=== PATIENT | female | born 1960 | race African-American/Black ===

== ENCOUNTER 2018-01-16 17:18 | Emergency (ER) | payer OTHER ==
[2018-01-16 19:21] LABS: Absolute Lymphocytes (CBC) 2.2 K/uL (0.7-4.9); Absolute Monocytes 0.4 K/uL (0.1-1.3); Absolute Neutrophil 4.4 K/uL (1.8-8.0); Basophils % 0.8 % (0-1.3); Eosinophils % 2.2 % (0-4.4); Hematocrit 40.8 % (36.0-45.0); Lymphocytes % 30.3 % (15.3-44.8); MCH 28.3 pg (27.0-35.0); MCV 87.9 fL (80-100); MPV 9.2 fL (7.6-11.3); Monocytes % 5.4 % (3.3-12.3); RBC Red Blood Cell Count 4.64 M/uL (3.86-4.86)
[2018-01-16] MEDS ORDERED: NA CHLORIDE 0.9% 1,000 ML ONE (19:27)
[2018-01-16] MEDS ORDERED: NA CHLORIDE 0.9% 500 ML ONE (19:27)
--- NOTE | 2018-01-16 19:29 | RAD REPORT ---
EXAM DESCRIPTION: Gypsy Single View01/16/2018 7:18 pm CLINICAL HISTORY: cough COMPARISON: none FINDINGS: The lungs appear clear of acute infiltrate. The heart is normal size IMPRESSION: No acute abnormalities displayed
[2018-01-16 19:43] LABS: Urine Blood NEGATIVE (NEG); Urine Glucose NEGATIVE (NEG); Urine Protein NEGATIVE (NEG); Urine pH 5.5 (5.0-7.0)
[2018-01-16 19:46] LABS: Protime INR 0.9
[2018-01-16 19:52] LABS: Bicarbonate 26 mEq/L (21-31); Glucose Level 98 mg/dL (65-120); Potassium 3.3 mEq/L (3.6-5.0); Sodium Level 138 mEq/L (135-145)
[2018-01-16 19:58] LABS: ALT/SGPT 14 IU/L (10-60); AST/SGOT 24 IU/L (10-42); Albumin 4.5 g/dL (3.2-5.5); Alkaline Phosphatase 89 IU/L (42-121); BUN Blood Urea Nitrogen 20 mg/dL (6-20); Bilirubin Direct < 0.1 mg/dL (0-0.2); Bilirubin Total 0.6 mg/dL (0.3-1.2); Creatine Phosphokinase 127 IU/L (22-269); Magnesium 2.3 mg/dL (1.8-2.5); Protein, Total 8.5 g/dL (6.0-8.3)
[2018-01-16 20:00] LABS: CKMB Creatine Kinase MB 2.6 ng/ml (0.3-4.0)
--- NOTE | 2018-01-16 20:07 | ER ---
Nurse's Notes [facility] Name: Liliana Da Silva Age: 57 yrs Sex: Female : 1960 Arrival Date: 01/16/2018 Time: 17:22 Bed 25 Private MD: Aaron Blake R Diagnosis: Weakness;Hypokalemia;Essential (primary) hypertension Presentation: 01/16 17:48 Presenting complaint: Patient states: Fatigue and generalized weakness since this AM. aj Transition of care: patient was not received from another setting of care. Onset of symptoms was January 16, 2018. Risk Assessment: Do you want to hurt yourself or someone else? Patient reports no desire to harm self or others. Initial Sepsis Screen: Does the patient meet any 2 criteria?. Care prior to arrival: None. 17:48 Method Of Arrival: Ambulatory aj 17:48 Acuity: LIZZ 3 aj 21:21 Initial Sepsis Screen: Does the patient have a suspected source of infection? No. aj1 Patient's initial sepsis screen is negative. Triage Assessment: 17:50 General: Appears in no apparent distress. comfortable, Behavior is calm, cooperative, aj appropriate for age. Pain: Denies pain. Neuro: Level of Consciousness is awake, alert, obeys commands, Oriented to person, place, time, situation, Appropriate for age. Respiratory: Airway is patent Respiratory effort is even, unlabored, Respiratory pattern is regular, symmetrical. Derm: Skin is intact, is healthy with good turgor, Skin is pink, warm \T\ dry. normal. Musculoskeletal: No signs and/or symptoms reported regarding the musculoskeletal system. Circulation, motion, and sensation intact. Historical: - Allergies: 17:50 No Known Allergies; aj - Home Meds: 17:50 amlodipine oral [Active]; losartan oral oral [Active]; aj - PMHx: 17:50 Hypertension; Leukemia; aj - PSHx: 17:50 None; aj - Immunization history:: Adult Immunizations up to date. - Social history:: Smoking status: Patient/guardian denies using tobacco. - Ebola Screening: : Patient negative for fever greater than or equal to 101.5 degrees Fahrenheit, and additional compatible Ebola Virus Disease symptoms Patient denies exposure to infectious person Patient denies travel to an Ebola-affected area in the 21 days before illness onset No symptoms or risks identified at this time. Screenin:15 Abuse screen: Denies threats or abuse. Denies injuries from another. Nutritional aj1 screening: No deficits noted. Tuberculosis screening: No symptoms or risk factors identified. 21:21 Fall Risk None identified. aj1 Assessment: 18:15 General: Appears in no apparent distress. comfortable, Behavior is calm, cooperative, aj1 appropriate for age. Pain: Denies pain. Neuro: Level of Consciousness is awake, alert, obeys commands, Oriented to person, place, time, situation, Sports Medicine Trainer are equal bilaterally Moves all extremities. Full function Gait is steady, Speech is normal, Facial symmetry appears normal, Intact Reports fatigue, malaise. Cardiovascular: Patient's skin is warm and dry. Respiratory: Airway is patent Respiratory effort is even, unlabored, Respiratory pattern is regular, symmetrical. GI: No signs and/or symptoms were reported involving the gastrointestinal system. : No signs and/or symptoms were reported regarding the genitourinary system. EENT: No signs and/or symptoms were reported regarding the EENT system. Derm: No signs and/or symptoms reported regarding the dermatologic system. Skin is normal. Musculoskeletal: No signs and/or symptoms reported regarding the musculoskeletal system. Circulation, motion, and sensation intact. 19:10 Reassessment: Patient appears in no apparent distress at this time. No changes from aj1 previously documented assessment. Patient and/or family updated on plan of care and expected duration. Pain level reassessed. Patient is alert, oriented x 3, equal unlabored respirations, skin warm/dry/pink. 20:08 Reassessment: Patient appears in no apparent distress at this time. No changes from aj1 previously documented assessment. Patient and/or family updated on plan of care and expected duration. Pain level reassessed. Patient is alert, oriented x 3, equal unlabored respirations, skin warm/dry/pink. Awaiting remaining labs to return before discharging patient. 21:19 Reassessment: Patient appears in no apparent distress at this time. No changes from aj1 previously documented assessment. Patient and/or family updated on plan of care and expected duration. Pain level reassessed. Patient is alert, oriented x 3, equal unlabored respirations, skin warm/dry/pink. 21:19 Reassessment: Patient is concerned about her high blood pressure. Notified Dr. Hudson aj1 of patient's concern. Patient was advised to keep a log of her blood pressures and bring it to her follow up with her PHCP so she can have medications adjusted if needed. Vital Signs: 17:50 BP 176 / 99; Pulse 72; Resp 16; Temp 97.8; Pulse Ox 100% on R/A; Weight 63.5 kg; Height aj 5 ft. 3 in. (160.02 cm); 19:10 BP 155 / 97; Pulse 81; Resp 18; Pulse Ox 99% ; aj1 20:09 BP 157 / 95; Pulse 83; Resp 18; Pulse Ox 98% on R/A; aj1 21:19 BP 155 / 95; Pulse 87; Resp 18; Pulse Ox 99% ; aj1 17:50 Body Mass Index 24.80 (63.50 kg, 160.02 cm) aj ED Course: 17:22 Patient arrived in ED. sb2 17:22 Aaron Blake MD is Private Physician. sb2 17:49 Triage completed. aj 17:50 Arm band placed on right wrist. Patient placed in an exam room. aj 18:15 Patient has correct armband on for positive identification. Bed in low position. Call aj1 light in reach. Side rails up X 1. 18:15 No provider procedures requiring assistance completed. aj1 18:16 Jaime Hudson MD is Attending Physician. tahmina 18:53 Rose Moseley, RN is Primary Nurse. aj1 19:16 XRAY Chest (1 view) In Process Unspecified. EDMS 19:16 X-ray completed. Portable x-ray completed in exam room. Patient tolerated procedure kc2 well. 19:30 Inserted saline lock: 22 gauge in right antecubital area, using aseptic technique. aj1 Blood collected. 20:05 Aaron Blake MD is Referral Physician. tahmina 21:20 IV discontinued, intact, bleeding controlled, No redness/swelling at site. Pressure aj1 dressing applied. Administered Medications: 19:30 Drug: NS 0.9% 500 ml Route: IV; Rate: bolus; Site: right antecubital; aj1 21:22 Follow up: IV Status: IV infiltrated; IV Intake: 100ml aj1 20:48 Drug: Potassium Chloride 20 mEq Route: PO; aj1 21:22 Follow up: Response: No adverse reaction aj1 21:22 Not Given (pt dischaged before bolus finished): NS 0.9% 1000 ml IV at 125 ml/hr aj1 continuous Intake: 21:22 IV: 100ml; Total: 100ml. aj1 Outcome: 20:06 Discharge ordered by . tahmina 21:21 Discharged to home ambulatory. aj1 21:21 Condition: good 21:21 Discharge instructions given to patient, Instructed on discharge instructions, follow up and referral plans. Demonstrated understanding of instructions, follow-up care. 21:22 Patient left the ED. aj1 Signatures: Dispatcher [employer] EDRose Mancia RN RN Noemi Aguilar RN Jaime Gomez MD MD cha Carr, Kelsie kc2 Tg [id number]
--- NOTE | 2018-01-16 20:07 | EDPHYS ---
Physician Documentation [facility] Name: Liliana Da Silva Age: 57 yrs Sex: Female : 1960 Arrival Date: 01/16/2018 Time: 17:22 Bed 25 Private MD: Aaron Blake R ED Physician Jaime Hudson HPI: 01/16 18:53 This 57 yrs old Black Female presents to ER via Ambulatory with complaints of Weakness. tahmina 18:53 The patient presents to the emergency department with weakness of the entire body, tahmina generalized weakness. Onset: The symptoms/episode began/occurred 3 day(s) ago. Historical: - Allergies: 17:50 No Known Allergies; aj - Home Meds: 17:50 amlodipine oral [Active]; losartan oral oral [Active]; aj - PMHx: 17:50 Hypertension; Leukemia; aj - PSHx: 17:50 None; aj - Immunization history:: Adult Immunizations up to date. - Social history:: Smoking status: Patient/guardian denies using tobacco. - Ebola Screening: : Patient negative for fever greater than or equal to 101.5 degrees Fahrenheit, and additional compatible Ebola Virus Disease symptoms Patient denies exposure to infectious person Patient denies travel to an Ebola-affected area in the 21 days before illness onset No symptoms or risks identified at this time. ROS: 18:54 Constitutional: Negative for fever, chills, and weight loss, Eyes: Negative for injury, tahmina pain, redness, and discharge, ENT: Negative for injury, pain, and discharge, Neck: Negative for injury, pain, and swelling, Cardiovascular: Negative for chest pain, palpitations, and edema, Respiratory: Negative for shortness of breath, cough, wheezing, and pleuritic chest pain, Abdomen/GI: Negative for abdominal pain, nausea, vomiting, diarrhea, and constipation, Back: Negative for injury and pain, : Negative for injury, bleeding, discharge, and swelling, MS/Extremity: Negative for injury and deformity, Skin: Negative for injury, rash, and discoloration, Psych: Negative for depression, anxiety, suicide ideation, homicidal ideation, and hallucinations, Allergy/Immunology: Negative for hives, rash, and allergies, Endocrine: Negative for neck swelling, polydipsia, polyuria, polyphagia, and marked weight changes, Hematologic/Lymphatic: Negative for swollen nodes, abnormal bleeding, and unusual bruising. 18:54 Neuro: Positive for weakness. Exam: 18:54 Constitutional: This is a well developed, well nourished patient who is awake, alert, tahmina and in no acute distress. Head/Face: Normocephalic, atraumatic. Eyes: Pupils equal round and reactive to light, extra-ocular motions intact. Lids and lashes normal. Conjunctiva and sclera are non-icteric and not injected. Cornea within normal limits. Periorbital areas with no swelling, redness, or edema. ENT: Nares patent. No nasal discharge, no septal abnormalities noted. Tympanic membranes are normal and external auditory canals are clear. Oropharynx with no redness, swelling, or masses, exudates, or evidence of obstruction, uvula midline. Mucous membranes moist. Neck: Trachea midline, no thyromegaly or masses palpated, and no cervical lymphadenopathy. Supple, full range of motion without nuchal rigidity, or vertebral point tenderness. No Meningismus. Chest/axilla: Normal chest wall appearance and motion. Nontender with no deformity. No lesions are appreciated. Cardiovascular: Regular rate and rhythm with a normal S1 and S2. No gallops, murmurs, or rubs. Normal PMI, no JVD. No pulse deficits. Respiratory: Lungs have equal breath sounds bilaterally, clear to auscultation and percussion. No rales, rhonchi or wheezes noted. No increased work of breathing, no retractions or nasal flaring. Abdomen/GI: Soft, non-tender, with normal bowel sounds. No distension or tympany. No guarding or rebound. No evidence of tenderness throughout. Back: No spinal tenderness. No costovertebral tenderness. Full range of motion. Female : Normal external genitalia. Skin: Warm, dry with normal turgor. Normal color with no rashes, no lesions, and no evidence of cellulitis. MS/ Extremity: Pulses equal, no cyanosis. Neurovascular intact. Full, normal range of motion. Neuro: Awake and alert, GCS 15, oriented to person, place, time, and situation. Cranial nerves II-XII grossly intact. Motor strength 5/5 in all extremities. Sensory grossly intact. Cerebellar exam normal. Normal gait. Psych: Awake, alert, with orientation to person, place and time. Behavior, mood, and affect are within normal limits. Vital Signs: 17:50 BP 176 / 99; Pulse 72; Resp 16; Temp 97.8; Pulse Ox 100% on R/A; Weight 63.5 kg; Height aj 5 ft. 3 in. (160.02 cm); 19:10 BP 155 / 97; Pulse 81; Resp 18; Pulse Ox 99% ; aj1 20:09 BP 157 / 95; Pulse 83; Resp 18; Pulse Ox 98% on R/A; aj1 21:19 BP 155 / 95; Pulse 87; Resp 18; Pulse Ox 99% ; aj1 17:50 Body Mass Index 24.80 (63.50 kg, 160.02 cm) aj MDM: 18:16 Patient medically screened. [facility] 18:54 Data reviewed: vital signs, nurses notes, lab test result(s), EKG, radiologic studies, tahmina plain films. 01/16 18:53 Order name: Basic Metabolic Panel; Complete Time: 20:55 [facility] 01/16 18:53 Order name: BNP; Complete Time: 20:00 [facility] 01/16 18:53 Order name: CBC with Diff; Complete Time: 19:59 [facility] 01/16 18:53 Order name: Ckmb; Complete Time: 20:55 [facility] 01/16 18:53 Order name: CPK; Complete Time: 20:55 [facility] 01/16 18:53 Order name: LFT's; Complete Time: 20:55 [facility] 01/16 18:53 Order name: Magnesium; Complete Time: 20:55 [facility] 01/16 18:53 Order name: PT-INR; Complete Time: 19:59 [facility] 01/16 18:53 Order name: Ptt, Activated; Complete Time: 19:59 [facility] 01/16 18:53 Order name: Troponin (emerg Dept Use Only); Complete Time: 19:59 [facility] 01/16 18:53 Order name: XRAY Chest (1 view); Complete Time: 19:59 [facility] 01/16 18:53 Order name: TSH; Complete Time: 20:55 [facility] 01/16 18:53 Order name: Urine Culture [facility] 01/16 19:25 Order name: Urine Dipstick--Ancillary (enter results); Complete Time: 19:59 01/16 18:53 Order name: EKG; Complete Time: 18:54 [facility] 01/16 18:53 Order name: Cardiac monitoring; Complete Time: 19:23 [facility] 01/16 18:53 Order name: EKG - Nurse/Tech; Complete Time: 19:23 [facility] 01/16 18:53 Order name: IV Saline Lock; Complete Time: 19:24 [facility] 01/16 18:53 Order name: Labs collected and sent; Complete Time: 19:57 [facility] 01/16 18:53 Order name: O2 Per Protocol; Complete Time: 19:24 [facility] 01/16 18:53 Order name: O2 Sat Monitoring; Complete Time: 19:24 [facility] 01/16 18:53 Order name: Urine Dipstick-Ancillary (obtain specimen); Complete Time: 19:24 [facility] Administered Medications: 19:30 Drug: NS 0.9% 500 ml Route: IV; Rate: bolus; Site: right antecubital; aj1 21:22 Follow up: IV Status: IV infiltrated; IV Intake: 100ml [facility] 20:48 Drug: Potassium Chloride 20 mEq Route: PO; aj1 21:22 Follow up: Response: No adverse reaction aj 21:22 Not Given (pt dischaged before bolus finished): NS 0.9% 1000 ml IV at 125 ml/hr [facility] continuous Disposition: 01/16/18 20:06 Discharged to Home. Impression: Weakness, Hypokalemia, Essential (primary) hypertension. - Condition is Stable. - Discharge Instructions: Potassium Content of Foods, Hypertension, Weakness, Fatigue, Near-Syncope, Xfub-[id number], Weakness, Ggox-jc-Aeru, Hypokalemia. - Medication Reconciliation Form, Thank You Letter, Antibiotic Education, Prescription Opioid Use form. - Follow up: Aaron Blake MD; When: 2 - 3 days; Reason: Recheck today's complaints, Continuance of care, Re-evaluation by your physician. - Problem is new. - Symptoms have improved. Signatures: Dispatcher [employer] EDRose Mancia RN RN Noemi Aguilar RN RN aj Anderson, Corey, MD MD cha Corrections: (The following items were deleted from the chart) 20:07 20:06 01/16/2018 20:06 Discharged to Home. Impression: Weakness; Hypokalemia. Condition tahmina is Stable. Forms are Medication Reconciliation Form, Thank You Letter, Antibiotic Education, Prescription Opioid Use. Follow up: Aaron Blake; When: 2 - 3 days; Reason: Recheck today's complaints, Continuance of care, Re-evaluation by your physician. Problem is new. Symptoms have improved. tahmina 21:22 20:07 01/16/2018 20:06 Discharged to Home. Impression: Weakness; Hypokalemia; Essential aj1 (primary) hypertension. Condition is Stable. Discharge Instructions: Potassium Content of Foods, Hypertension, Weakness, Fatigue, Near-Syncope, [id number]-Dczf, Weakness, Kvft-hw-Pmfh, Hypokalemia. Forms are Medication Reconciliation Form, Thank You Letter, Antibiotic Education, Prescription Opioid Use. Follow up: Aaron Blake; When: 2 - 3 days; Reason: Recheck today's complaints, Continuance of care, Re-evaluation by your physician. Problem is new. Symptoms have improved. tahmina
[2018-01-16] MEDS ORDERED: POTASSIUM CL SA 10 MEQ TAB PO ONE (20:26)
[2018-01-16 20:29] LABS: Thyroid Stimulating Hormone 1.37 uIU/mL (0.34-5.60)
--- NOTE | 2018-01-17 06:48 | EKG ---
Test Date: 2018-01-16 Test Time: 19:17:40 [place] Attendant: STEPHEN MEASUREMENT RESULTS: Intervals: Rate: 75 GA: 126 QRSD: 86 QT: 398 QTc: 444 [place]: P: 43 GA: 126 QRS: -12 T: 12 INTERPRETIVE STATEMENTS: Normal sinus rhythm Minimal voltage criteria for LVH, may be normal variant Borderline ECG No previous ECG available for comparison Electronically Signed On 01-17-18 06:47:03 CDT by Eliazar Eric
== END 2018-01-16 21:22 | disposition home or self-care (01) ==
LOC: ER 17:18
DX: E87.6 Hypokalemia (principal); I10 Essential (primary) hypertension; Z85.6 Personal history of leukemia
CPT/HCPCS: 36415; 71045; 80048; 80076; 81003; 82550; 82553; 83735; 83880; 84443; 84484; 85025; 85610; 85730; 87086; 87088; 93005; 96360; 96361; 99284; J7030

== ENCOUNTER 2019-09-08 10:07 | Emergency (ER) | payer BC ==
[2019-09-08] MEDS ORDERED: AMLODIPINE 5 MG TAB ONE (11:24)
[2019-09-08] MEDS ORDERED: HYDROCODONE/APAP 5/325 MG TAB ONE (11:24)
--- NOTE | 2019-09-08 11:42 | RAD REPORT ---
EXAM DESCRIPTION: Shoulder Right 2 View - 09/08/2019 11:28 am CLINICAL HISTORY: shoudler pain COMPARISON: Chest Single View dated 01/16/2018 TECHNIQUE: Internal and external rotation views of the right shoulder were obtained. FINDINGS: There is no fracture or dislocation. AC joint is normal in appearance. Acromial humeral j oint space is normal. Small calcifications are present along the lateral margin of the humeral head s imilar to January 2018. IMPRESSION: No acute right shoulder finding. Soft tissue calcifications likely indicate a calcific tendinitis/tendinosis.
--- NOTE | 2019-09-08 11:52 | ER ---
Nurse's Notes [facility] Name: Liliana Da Silva Age: 59 yrs Sex: Female : 1960 Arrival Date: 09/08/2019 Time: 10:10 Bed 15 Private MD: Ed Richardson Diagnosis: Pain in right shoulder;Calcific tendinitis of right shoulder Presentation: 09/08 10:25 Presenting complaint: Patient states: woke up with right arm pain Friday , has not iw gone away, denies injury, feels like a charley horse. 10:25 Method Of Arrival: Ambulatory iw 10:26 Transition of care: patient was not received from another setting of care. Onset of iw symptoms was September 06, 2019. Risk Assessment: Do you want to hurt yourself or someone else? Patient reports no desire to harm self or others. Initial Sepsis Screen: Does the patient meet any 2 criteria? No. Patient's initial sepsis screen is negative. Does the patient have a suspected source of infection? No. Patient's initial sepsis screen is negative. Care prior to arrival: None. 10:26 Acuity: LIZZ 4 iw Historical: - Allergies: 10:27 No Known Allergies; iw - Home Meds: 10:27 losartan Oral [Active]; amlodipine oral [Active]; iw - PMHx: 10:27 Hypertension; Leukemia; iw - PSHx: 10:27 None; iw - Immunization history:: Adult Immunizations not immunized. - Social history:: Smoking status: Patient denies any tobacco usage or history of. - Ebola Screening: : Patient negative for fever greater than or equal to 101.5 degrees Fahrenheit, and additional compatible Ebola Virus Disease symptoms Patient denies exposure to infectious person Patient denies travel to an Ebola-affected area in the 21 days before illness onset No symptoms or risks identified at this time. Screenin:00 Abuse screen: Denies threats or abuse. Denies injuries from another. Nutritional sg screening: No deficits noted. Tuberculosis screening: No symptoms or risk factors identified. Never had TB. Fall Risk None identified. Assessment: 10:30 General: Appears in no apparent distress. well groomed, well developed, well nourished, sg Behavior is calm, cooperative, appropriate for age. Pain: Complains of pain in anterior aspect of right shoulder and posterior aspect of right shoulder Quality of pain is described as aching. Cardiovascular: Patient's skin is warm and dry. Respiratory: Airway is patent Respiratory effort is even, unlabored, Respiratory pattern is regular, symmetrical. Derm: Skin is intact, is healthy with good turgor, Skin is dry, Skin is normal, Skin temperature is warm. Vital Signs: 10:27 BP 200 / 97; Pulse 56; Resp 16; Temp 98.1; Pulse Ox 99% on R/A; Weight 66.68 kg; Height iw 5 ft. 3 in. (160.02 cm); Pain 8/10; 12:30 BP 215 / 92; Pulse 66; Resp 16; Pulse Ox 100% on R/A; iw 13:02 BP 192 / 88; Pulse 62; Resp 16; Pulse Ox 99% on R/A; sg 10:27 Body Mass Index 26.04 (66.68 kg, 160.02 cm) iw ED Course: 10:10 Patient arrived in ED. mr 10:11 Ed Richardson DO is Private Physician. mr 10:26 Triage completed. iw 10:30 Harsh Mares PA is PHCP. jmm 10:30 Jalil Skinner MD is Attending Physician. jmm 10:30 Patient has correct armband on for positive identification. Bed in low position. Call sg light in reach. 10:33 Jimmy Valles, RN is Primary Nurse. sg 10:35 Arm band placed on. sg 11:29 Shoulder Right (2 View) XRAY In Process Unspecified. EDMS 11:51 Jass Seaman MD is Referral Physician. [facility] 13:00 No provider procedures requiring assistance completed. Patient did not have IV access sg during this emergency room visit. Administered Medications: 11:25 Drug: [place] 5 mg-325 mg 1 tabs Route: PO; sg 11:25 Drug: amLODIPine 10 mg Route: PO; sg 12:36 Drug: cloNIDine 0.2 mg Route: PO; iw Outcome: 11:51 Discharge ordered by . [facility] 13:00 Discharged to home ambulatory, with family. sg 13:00 Condition: good 13:00 Discharge instructions given to patient, Instructed on discharge instructions, follow up and referral plans. medication usage, safety practices, Demonstrated understanding of instructions, follow-up care, medications, Prescriptions given X 4. 13:02 Patient left the ED. sg Signatures: Dispatcher [employer] Jimmy Hall, Harsh Villanueva RN, PA PA jmm Rivera, Mary mr Milvia Lang, RN RN iw
--- NOTE | 2019-09-08 11:52 | EDPHYS ---
Physician Documentation [facility] Name: Liliana Da Silva Age: 59 yrs Sex: Female : 1960 Arrival Date: 09/08/2019 Time: 10:10 Bed 15 Private MD: Ed Richardson ED Physician Jalil Skinner HPI: 09/08 10:55 This 59 yrs old Black Female presents to ER via Ambulatory with complaints of Arm Pain. jmm 10:55 The patient or guardian complains of pain. Onset: The symptoms/episode began/occurred jmm gradually, 4 day(s) ago. Modifying factors: The symptoms are alleviated by remaining still, the symptoms are aggravated by movement. Associated signs and symptoms: Pertinent positives: pain, Pertinent negatives: fever. This is a 59 years old female with a history of htn that presents to the ED with complaints of right shoulder pain beginning this past Friday morning. Patient denies fever, denies known injury. . Historical: - Allergies: 10:27 No Known Allergies; iw - Home Meds: 10:27 losartan Oral [Active]; amlodipine oral [Active]; iw - PMHx: 10:27 Hypertension; Leukemia; iw - PSHx: 10:27 None; iw - Immunization history:: Adult Immunizations not immunized. - Social history:: Smoking status: Patient denies any tobacco usage or history of. - Ebola Screening: : Patient negative for fever greater than or equal to 101.5 degrees Fahrenheit, and additional compatible Ebola Virus Disease symptoms Patient denies exposure to infectious person Patient denies travel to an Ebola-affected area in the 21 days before illness onset No symptoms or risks identified at this time. ROS: 10:55 Constitutional: Negative for fever, chills, and weight loss, Cardiovascular: Negative jmm for chest pain, palpitations, and edema, Respiratory: Negative for shortness of breath, cough, wheezing, and pleuritic chest pain. 10:55 MS/extremity: Positive for pain. 10:55 All other systems are negative. Exam: 10:55 Constitutional: This is a well developed, well nourished patient who is awake, alert, jmm and in no acute distress. Head/Face: atraumatic. Eyes: EOMI, no conjunctival erythema appreciated ENT: Moist Mucus Membranes Neck: Trachea midline, Supple Chest/axilla: Normal chest wall appearance and motion. Cardiovascular: Regular rate and rhythm. No edema appreciated Respiratory: Normal respirations, no respiratory distress appreciated Abdomen/GI: Non distended, soft Back: Normal ROM Skin: General appearance color normal 10:55 Musculoskeletal/extremity: right anterior shoulder TTP, painful abduction, full radial pulse, compartments soft, NVI. 10:55 Skin: Appearance: Color: normal in color. 10:55 Neuro: Orientation: is normal, Mentation: is normal, Memory: is normal. 10:55 Psych: Behavior/mood is pleasant, cooperative. Vital Signs: 10:27 BP 200 / 97; Pulse 56; Resp 16; Temp 98.1; Pulse Ox 99% on R/A; Weight 66.68 kg; Height iw 5 ft. 3 in. (160.02 cm); Pain 8/10; 12:30 BP 215 / 92; Pulse 66; Resp 16; Pulse Ox 100% on R/A; iw 13:02 BP 192 / 88; Pulse 62; Resp 16; Pulse Ox 99% on R/A; sg 10:27 Body Mass Index 26.04 (66.68 kg, 160.02 cm) iw MDM: 10:55 Patient medically screened. [facility] 11:50 Data reviewed: vital signs, nurses notes. Counseling: I had a detailed discussion with yris the patient and/or guardian regarding: the historical points, exam findings, and any diagnostic results supporting the discharge/admit diagnosis, radiology results, the need for outpatient follow up, to return to the emergency department if symptoms worsen or persist or if there are any questions or concerns that arise at home. ED course: Patient is alert and non toxic in appearance in the ED. Advised to follow up with ortho for reevaluation. Patient understood and agrees with the plan of care. . 09/08 11:04 Order name: Shoulder Right (2 View) XRAY; Complete Time: 11:41 [facility] 09/08 11:46 Order name: Sling; Complete Time: 12:25 [facility] Administered Medications: 11:25 Drug: Tenino 5 mg-325 mg 1 tabs Route: PO; sg 11:25 Drug: amLODIPine 10 mg Route: PO; sg 12:36 Drug: cloNIDine 0.2 mg Route: PO; iw Disposition: 16:47 Co-signature as Attending Physician, Jalil Skinner MD. rn Disposition: 09/08/19 11:51 Discharged to Home. Impression: Pain in right shoulder, Calcific tendinitis of right shoulder. - Condition is Stable. - Discharge Instructions: Arthritis, Shoulder Pain. - Prescriptions for Medrol (Greg) 4 mg Oral Tablets, Dose Pack - take 1 tablet by ORAL route as directed - follow package instructions; 1 packet. orphenadrine citrate 100 mg Oral Tablet Sustained Release - take 1 tablet by ORAL route 2 times per day As needed; 20 tablet. amlodipine 10 mg Oral tablet - take 1 tablet by ORAL route once daily; 30 tablet. losartan 100 mg Oral tablet - take 1 tablet by ORAL route once daily; 30 tablet. - Work release form, Medication Reconciliation Form, Thank You Letter, Antibiotic Education, Prescription Opioid Use form. - Follow up: Jass Seaman MD; When: 2 - 3 days; Reason: Recheck today's complaints, Continuance of care, Re-evaluation by your physician. Signatures: Dispatcher [employer] EDJimmy Bruno RN RN sg Mickail, Joel, PA PA jmm Williams, Irene, RN RN iw Nieto, Roman, MD MD internal grinding machine operator: (The following items were deleted from the chart) 13:02 11:51 09/08/2019 11:51 Discharged to Home. Impression: Pain in right shoulder; Calcific sg tendinitis of right shoulder. Condition is Stable. Forms are Medication Reconciliation Form, Thank You Letter, Antibiotic Education, Prescription Opioid Use. Follow up: Dr. Jass Seaman; When: 2 - 3 days; Reason: Recheck today's complaints, Continuance of care, Re-evaluation by your physician. yris
[2019-09-08] MEDS ORDERED: cloNIDine HCL 0.1 MG TAB ONE (12:46)
[2019-09-08 20:16] VITALS: TEMP 98.1
[2019-09-08 20:22] VITALS: BP 192/88; O2SAT 99
== END 2019-09-08 13:02 | disposition home or self-care (01) ==
LOC: ER 10:07
DX: M75.31 Calcific tendinitis of right shoulder (principal); I10 Essential (primary) hypertension; Z85.6 Personal history of leukemia
CPT/HCPCS: 99283

== ENCOUNTER 2022-09-17 16:21 | Emergency (ER) | payer BC, SELFPAY ==
--- OUTSIDE RECORDS SUMMARY | 2022-09-17 16:23 | XMS REPORT | Continuity of Care Document ---
:1960 Author Organization [facility] t Address [address] [place] [address] Care Team Providers Name Role Phone Ed Richardson Attending Clinician Unavailable Problems This patient has no known problems. Allergies, Adverse Reactions, Alerts This patient has no known allergies or adverse reactions. Medications This patient has no known medications. Procedures This patient has no known procedures. Encounters Start End Encounter Admission Attending Care Care Encounter Source Date/Time Date/Time Type Type Clinicians Facility Department ID 2022-08-08 Outpatient Richardson, STLMLC STLMLC [id number] Common 11:22:00 Ed [id number] [facility] 2022-01-08 Outpatient Richardson, STLMLC STLMLC [id number] Common 14:22:01 Ed [facility] 2021-12-24 Outpatient Richardson, STLMLC STLMLC [id number] Common 12:04:00 Ed 48170 [facility] 2021-09-12 Outpatient Richardson, STLMLC STLMLC [id number] Common 14:22:25 Ed 41036 [facility] 2021-09-12 Outpatient Richardson, STLMLC STLMLC [id number] Common 13:56:37 Ed 67595 [facility] 2021-09-12 Outpatient Richardson, STLMLC STLMLC [id number] Common 13:50:02 Ed 60941 [facility] 2021-09-12 Outpatient Richardson, STLMLC STLMLC [id number] Common 13:29:44 Ed 58402 [facility] 2021-09-12 Outpatient Richardson, STLMLC STLMLC [id number] Common 13:23:58 Ed 23271 [facility] 2021-09-12 Outpatient Richardson, STLMLC STLMLC [id number] Common 13:23:33 Ed 04721 [facility] 2021-09-12 Outpatient Richardson, STLMLC STLMLC [id number] Common 12:49:49 Ed 44635 [facility] 2021-09-12 Outpatient Richardson, STLMLC STLMLC [id number] Common 12:47:32 De 63175 [facility] 2021-09-12 Outpatient Richardson, STLMLC STLMLC [id number] Common 12:43:42 Ed 77312 [facility] 2021-09-12 Outpatient Richardson, STLMLC STLMLC [id number] Common 12:37:30 Ed 66154 [facility] 2021-09-12 Outpatient Richardson, STLMLC STLMLC [id number] Common 12:27:22 Ed 01240 [facility] 2021-09-12 Outpatient Richardson, STLMLC STLMLC [id number] Common 12:24:58 Ed 63941 [facility] 2021-09-12 Outpatient Richardson, STLMLC STLMLC [id number] Common 11:57:41 Ed 33437 [facility] 2021-09-12 Outpatient Richardson, STLMLC STLMLC [id number] Common 11:57:01 Ed 54049 [facility] 2021-09-12 Outpatient Richardson, STLMLC STLMLC [id number] Common 11:55:43 Ed 05453 [facility] 2021-09-12 Outpatient Richardson, STLMLC STLMLC [id number] Common 11:38:53 Ed 21320 [facility] 2021-09-12 Outpatient Richardson, STLMLC STLMLC [id number] Common 11:25:12 Ed 60352 [facility] 2021-09-12 Outpatient Richardson, STLMLC STLMLC [id number] Common 11:21:48 Ed [id number] [facility] 2021-09-12 Outpatient Dylan REUBENGENARO [facility] [id number] Common 11:14:56 [facility] [address] [facility] Results This patient has no known results.
[2022-09-17 17:22] LABS: Absolute Lymphocytes (CBC) 2.6 K/uL (0.7-4.9); Hematocrit 41.1 % (36.0-45.0); Lymphocytes % 30.4 % (15.3-44.8); MCV 87.5 fL (80-100); MPV 9.2 fL (7.6-11.3)
[2022-09-17 17:42] LABS: Troponin High Sensitivity 7.3 pg/mL (<58.9)
[2022-09-17] MEDS ORDERED: HYDRALAZINE HCL 20 MG/ML VIAL ONE (17:50)
--- NOTE | 2022-09-17 17:59 | RAD REPORT ---
EXAM DESCRIPTION: RAD - Chest Single View - 09/17/2022 5:46 pm CLINICAL HISTORY: MALAISE Chest pain. COMPARISON: Chest Single View dated 01/16/2018 FINDINGS: Portable technique limits examination quality. The lungs are grossly clear. The heart is normal in size. No displaced fractures. IMPRESSION: No acute intrathoracic process suspected.
[2022-09-17] MEDS ORDERED: ACETAMINOPHEN 325 MG TABLET ONE (18:29)
[2022-09-17] MEDS ORDERED: cloNIDine HCL 0.1 MG TAB ONE (18:29)
--- NOTE | 2022-09-17 18:35 | EDPHYS ---
Physician Documentation [facility] Name: Liliana Da Silva Age: 62 yrs Sex: Female : 1960 Arrival Date: 09/17/2022 Time: 16:22 Bed 17 Private MD: Dylan [facility] ED Physician Jalil Skinner HPI: 09/17 16:30 This 62 yrs old Black Female presents to ER via Ambulatory with complaints of High jh7 Blood Pressure. 16:30 The patient has elevated blood pressure and discovered this at home, with a home jh7 device. Onset: The symptoms/episode began/occurred 2 week(s) ago. 62-year-old female with a history of hypertension states that she ran out of her amlodipine and losartan 2 weeks ago. Only reports a slight headache but states that her blood pressure was 180/90 at home.. Historical: - Allergies: 16:36 No Known Allergies; aa5 - Home Meds: 16:36 amlodipine oral [Active]; losartan Oral [Active]; aa5 - PMHx: 16:30 Hypertension; Leukemia; aa5 - Immunization history:: Adult Immunizations unknown. - Social history:: Smoking status: Patient denies any tobacco usage or history of. ROS: 16:30 Constitutional: Negative for fever, chills, and weight loss, Eyes: Negative for injury, jh7 pain, redness, and discharge, Neck: Negative for injury, pain, and swelling, Cardiovascular: Negative for chest pain, palpitations, and edema, Respiratory: Negative for shortness of breath, cough, wheezing, and pleuritic chest pain, Abdomen/GI: Negative for abdominal pain, nausea, vomiting, diarrhea, and constipation, MS/Extremity: Negative for injury and deformity, Skin: Negative for injury, rash, and discoloration. 16:30 Neuro: Positive for headache, Negative for dizziness, gait disturbance, numbness, syncope, tingling, visual changes, weakness. 16:30 All other systems are negative. Exam: 16:30 Constitutional: This is a well developed, well nourished patient who is awake, alert, jh7 and in no acute distress. Head/Face: Normocephalic, atraumatic. Eyes: Pupils equal round and reactive to light, extra-ocular motions intact. Lids and lashes normal. Conjunctiva and sclera are non-icteric and not injected. Cornea within normal limits. Periorbital areas with no swelling, redness, or edema. Cardiovascular: Regular rate and rhythm with a normal S1 and S2. No gallops, murmurs, or rubs. Normal PMI, no JVD. No pulse deficits. Respiratory: Lungs have equal breath sounds bilaterally, clear to auscultation and percussion. No rales, rhonchi or wheezes noted. No increased work of breathing, no retractions or nasal flaring. Abdomen/GI: Soft, non-tender, with normal bowel sounds. No distension or tympany. No guarding or rebound. No evidence of tenderness throughout. Skin: Warm, dry with normal turgor. Normal color with no rashes, no lesions, and no evidence of cellulitis. MS/ Extremity: Pulses equal, no cyanosis. Neurovascular intact. Full, normal range of motion. Neuro: Awake and alert, GCS 15, oriented to person, place, time, and situation. Cranial nerves II-XII grossly intact. Motor strength 5/5 in all extremities. Sensory grossly intact. Cerebellar exam normal. Normal gait. Vital Signs: 16:33 BP 202 / 129; Pulse 55; Resp 18 S; Temp 97.0(TE); Pulse Ox 100% on R/A; Weight 65.77 aa5 kg; Height 5 ft. 3 in. (160.02 cm) (R); 18:08 BP 190 / 93; Pulse 71; Pulse Ox 100% on R/A; ap3 18:29 BP 180 / 85; ap3 18:36 BP 171 / 87; Pulse 72; Pulse Ox 100% on R/A; ap3 16:33 Body Mass Index 25.68 (65.77 kg, 160.02 cm) aa5 MDM: 16:32 Patient medically screened. jh7 18:44 Differential diagnosis: hypertensive crisis, Malignant HTN. Data interpreted: Pulse [facility] oximetry: is 97 %. Interpretation: normal. Data reviewed: vital signs, nurses notes, lab test result(s), EKG, radiologic studies, plain films. I considered the following discharge prescriptions or medication management in the emergency department Medications were administered in the Emergency Department. See MAR. Independent interpretation of the following test(s) in the Emergency Department EKG: See my EKG interpretation above X-Ray: My interpretation is No acute findings. Care significantly affected by the following chronic conditions: Hypertension. Counseling: I had a detailed discussion with the patient and/or guardian regarding: the historical points, exam findings, and any diagnostic results supporting the discharge/admit diagnosis, to return to the emergency department if symptoms worsen or persist or if there are any questions or concerns that arise at home. ED course: Patient asymptomatic at time of discharge. Reviewed all of her labs, imaging, and EKG. Informed her that we could refill her amlodipine and losartan but that she would need to follow-up with her PCP Dr. Richardson.. 09/17 16:39 Order name: Basic Metabolic Panel; Complete Time: 17:45 [facility] 09/17 16:39 Order name: CBC with Diff; Complete Time: 17:27 [facility] 09/17 16:39 Order name: Troponin HS; Complete Time: 17:45 [facility] 09/17 16:39 Order name: XRAY Chest (1 view); Complete Time: 18:10 [facility] 09/17 16:39 Order name: EKG; Complete Time: 16:40 [facility] 09/17 16:39 Order name: Cardiac monitoring; Complete Time: 18:32 [facility] 09/17 16:39 Order name: EKG - Nurse/Tech; Complete Time: 18:32 [facility] 09/17 16:39 Order name: IV Saline Lock; Complete Time: 17:41 [facility] 09/17 16:39 Order name: Labs collected and sent; Complete Time: 17:41 [facility] 09/17 16:39 Order name: O2 Per Protocol; Complete Time: 17:41 [facility] 09/17 16:39 Order name: O2 Sat Monitoring; Complete Time: 17:41 [facility] EC:16 Rate is 67 beats/min. Rhythm is regular. QRS [place] is Normal. MO interval is normal at jh7 160 msec. QRS interval is normal at 78 msec. QT interval is normal at 402 msec. No Q waves. T waves are Normal. No ST changes noted. Clinical impression: Normal ECG. Administered Medications: 17:57 Drug: hydrALAZINE 10 mg Route: IVP; Site: left antecubital; ap3 18:30 Follow up: Response: No adverse reaction; Blood pressure is lowered ap3 18:30 Drug: cloNIDine 0.1 mg Route: PO; ap3 18:49 Follow up: Response: No adverse reaction; Blood pressure is lowered ap3 18:30 Drug: Tylenol 650 mg Route: PO; ap3 18:49 Follow up: Response: No adverse reaction; Pain is decreased ap3 Disposition Summary: 09/17/22 18:34 Discharge Ordered Location: Home [facility] Problem: chronic [facility] Symptoms: have improved [facility] Condition: Stable [facility] Diagnosis - Essential (primary) hypertension [facility] Followup: [facility] - With: Ed Richardson, DO - When: 2 - 3 days - Reason: Recheck today's complaints Discharge Instructions: - Discharge Summary Sheet [facility] - Hypertension, Adult [facility] - Managing Your Hypertension [facility] Forms: - Work release form ap3 - Medication Reconciliation Form 7 - Thank You Letter [facility] Prescriptions: - amlodipine 10 mg Oral tablet - take 1 tablet by ORAL route once daily; 30 tablet; Refills: 0, Product jh7 Selection Permitted - losartan 50 mg Oral tablet - take 1 tablet by ORAL route once daily; 30 tablet; Refills: 0, Product [facility] Selection Permitted Signatures: Dispatcher [employer] Juju Ball, RN RN aa5 Noemi Gonzales RN RN ap3 La Nena Boyd, SENIOR IT ENGINEER SENIOR IT ENGINEER [facility]
--- NOTE | 2022-09-17 18:35 | ER ---
Nurse's Notes [facility] Name: Liliana Da Silva Age: 62 yrs Sex: Female : 1960 Arrival Date: 09/17/2022 Time: 16:22 Bed 17 Private MD: Ed Richardson Diagnosis: Essential (primary) hypertension Presentation: 09/17 16:33 Chief complaint: Chief complaint: Patient states: "my blood pressure has been high aa5 since Friday, it was up to 185/93". Pt reports headache, pt reports being out of losartan and amlodipine for 2 weeks. 16:33 Coronavirus screen: At this time, the client does not indicate any symptoms associated aa5 with coronavirus-19. Ebola Screen: Patient denies travel to an Ebola-affected area in the 21 days before illness onset. Initial Sepsis Screen: Does the patient meet any 2 criteria? No. Patient's initial sepsis screen is negative. Does the patient have a suspected source of infection? No. Patient's initial sepsis screen is negative. Risk Assessment: Do you want to hurt yourself or someone else? Patient reports no desire to harm self or others. Onset of symptoms was August 2022. 16:33 Method Of Arrival: Ambulatory aa5 16:33 Acuity: LIZZ 2 aa5 Triage Assessment: 18:08 General: Appears in no apparent distress. Behavior is calm, cooperative, appropriate ap3 for age. Pain: Denies pain. Neuro: Level of Consciousness is awake, alert, obeys commands, Oriented to person, place, time, situation. Cardiovascular: Patient's skin is warm and dry. Respiratory: Airway is patent Respiratory effort is even, unlabored. Historical: - Allergies: 16:36 No Known Allergies; aa5 - Home Meds: 16:36 amlodipine oral [Active]; losartan Oral [Active]; aa5 - PMHx: 16:30 Hypertension; Leukemia; aa5 - Immunization history:: Adult Immunizations unknown. - Social history:: Smoking status: Patient denies any tobacco usage or history of. Screenin:07 [facility] ED Fall Risk Assessment (Adult) History of falling in the last 3 months, ap3 including since admission No falls in past 3 months (0 pts). Abuse screen: Denies threats or abuse. Nutritional screening: No deficits noted. Tuberculosis screening: No symptoms or risk factors identified. Vital Signs: 16:33 BP 202 / 129; Pulse 55; Resp 18 S; Temp 97.0(TE); Pulse Ox 100% on R/A; Weight 65.77 aa5 kg; Height 5 ft. 3 in. (160.02 cm) (R); 18:08 BP 190 / 93; Pulse 71; Pulse Ox 100% on R/A; ap3 18:29 BP 180 / 85; ap3 18:36 BP 171 / 87; Pulse 72; Pulse Ox 100% on R/A; ap3 16:33 Body Mass Index 25.68 (65.77 kg, 160.02 cm) aa5 ED Course: 16:22 Patient arrived in ED. am2 16:22 Ed Richardson DO is Private Physician. am2 16:32 La [facility] Boyd [facility] jh7 16:32 Jalil Skinner MD is Attending Physician. jh7 16:33 Arm band placed on. aa5 16:36 Triage completed. aa5 17:41 Noemi Gonzales, RN is Primary Nurse. ap3 17:48 XRAY Chest (1 view) In Process Unspecified. EDMS 18:08 Patient has correct armband on for positive identification. Bed in low position. Call ap3 light in reach. property assessment monitor on. Pulse ox on. NIBP on. 18:34 Ed Richardson DO is Referral Physician. jh7 18:49 No provider procedures requiring assistance completed. ap3 18:58 IV discontinued, intact, bleeding controlled, No redness/swelling at site. Pressure ap3 dressing applied. Administered Medications: 17:57 Drug: hydrALAZINE 10 mg Route: IVP; Site: left antecubital; ap3 18:30 Follow up: Response: No adverse reaction; Blood pressure is lowered ap3 18:30 Drug: cloNIDine 0.1 mg Route: PO; ap3 18:49 Follow up: Response: No adverse reaction; Blood pressure is lowered ap3 18:30 Drug: Tylenol 650 mg Route: PO; ap3 18:49 Follow up: Response: No adverse reaction; Pain is decreased ap3 Medication: 18:08 VIS not applicable for this client. ap3 Outcome: 18:34 Discharge ordered by . jh7 18:58 Discharged to home ambulatory. ap3 18:58 Condition: good 18:58 Discharge instructions given to patient, Instructed on discharge instructions, follow up and referral plans. medication usage, Demonstrated understanding of instructions, follow-up care, medications, Prescriptions given X 2. 19:11 Patient left the ED. ap3 Signatures: Dispatcher [employer] EDMS Juju Dillon, RN RN aa5 Noemi Sue am2 Noemi Gonzales RN RN ap3 La Nena Boyd FNP CAT SCAN TECH 7 Corrections: (The following items were deleted from the chart) 16:36 16:33 Chief complaint: aa5 aa5 16:37 16:33 Acuity: LIZZ 3 aa5 aa5 16:37 16:33 Pulse 55bpm; Resp 18bpm; Spontaneous; Pulse Ox 100% RA; Temp 97.0F Temporal; aa5 65.77 kg; Height 5 ft. 3 in. Reported; BMI: 25.6; aa5
[2022-09-17 19:32] VITALS: TEMP 97; O2SAT 100
[2022-09-17 19:35] VITALS: BP 171/87
== END 2022-09-17 19:11 | disposition home or self-care (01) ==
LOC: ER 16:21
DX: I10 Essential (primary) hypertension (principal); R51.9 Headache, unspecified; Z85.6 Personal history of leukemia
CPT/HCPCS: 36415; 71045; 80048; 84484; 85025; 93005; J0360